=== PATIENT | male | born 1970 | race Caucasian/White ===

== ENCOUNTER 2020-11-27 14:39 | Emergency (ER) | payer OTHER ==
[~2020-11-27] VITALS: Ht 172.7 cm; Wt 77.3 kg
[2020-11-27] MEDS ORDERED: LUNE3TAB36 PO (19:23)
[2020-11-27] MEDS ORDERED: ATOR1TAB19 PO (19:23)
[2020-11-27] MEDS ORDERED: FAMO10TA50 PO (19:23)
[2020-11-27] MEDS ORDERED: PROP20TA72 PO (19:23)
[2020-11-27] MEDS ORDERED: PROPARACAINE 0.5% OPHTH SOL 15ML OU ONE (19:35)
[2020-11-27] MEDS ORDERED: FLUORESCEIN OPHTH 1 MG STRIP OU ONE (19:35)
[2020-11-27] MEDS ORDERED: VALT500T PO (20:15)
[2020-11-27] MEDS ORDERED: KETO0.02 OP (20:23)
[2020-11-27 20:54] VITALS: BP 149/89
== END 2020-11-27 20:56 | disposition home or self-care (01) ==
LOC: M ED 14:39
DX: B00.2 Herpesviral gingivostomatitis and pharyngotonsillitis (principal); H57.89 Other specified disorders of eye and adnexa